=== PATIENT | male | born 1985 | race American Indian/Alaskan Native ===

== ENCOUNTER 2017-06-04 00:12 | Emergency (ER) | payer SELFPAY ==
[2017-06-04 01:59] VITALS: BP 123/72; PULSE 57; RESP 18; TEMP 97.4; O2SAT 100
--- NOTE | 2017-06-04 03:15 | C.PDOC ---
History Of Present Illness 32 year old male presents to the ER with a complaint of left knee pain after patient slipped and landed on his left knee a few hours [employer] while at work. Patient reports he had a plate placed on the same knee. Denies weakness or numbness. Time Seen by Provider: 06/04/17 00:24 Chief Complaint (Nursing): Lower Extremity Problem/Injury History Per: Patient History/Exam Limitations: no limitations Onset/Duration Of Symptoms: Hrs Current Symptoms Are (Timing): Still Present Recent travel outside of the [place]: No - Knee Description Of Injury: Fell Past Medical History Reviewed: Historical Data, Nursing Documentation, Vital Signs Vital Signs: Last Vital Signs Temp 97.4 F L 06/04/17 01:50 Pulse 57 L 06/04/17 01:50 Resp 18 06/04/17 01:50 BP 123/72 06/04/17 01:50 Pulse Ox 100 06/04/17 03:23 - Medical History PMH: No Chronic Diseases Family History: States: Unknown Family Hx - Social History Hx Alcohol Use: No Hx Substance Use: No Review Of Systems Except As Marked, All Systems Reviewed And Found Negative. Musculoskeletal: Positive for: Leg Pain Neurological: Negative for: Weakness, Numbness Physical Exam - Physical Exam Appears: Non-toxic, No Acute Distress Skin: Normal Color, Warm, Dry Head: Atraumatic, Normacephalic Eye(s): bilateral: Normal Inspection, PERRL, EOMI Oral Mucosa: Moist Extremity: Normal ROM (x4), Tenderness (to medial anterior knee), No Deformity, No Swelling, No Other (Erythema) Pulses: Left Dorsalis Pedis: Normal, Right Dorsalis Pedis: Normal Neurological/Psych: Oriented x3, Normal Speech, Normal Motor, Normal Sensation Gait: Steady ED Course And Treatment O2 Sat by Pulse Oximetry: 100 (Room air) Pulse Ox Interpretation: Normal - Other Rad Left knee x-ray X-Ray: Interpreted by Me, Viewed By Me Interpretation: Hardware in place, no new fractures or dislocations. Medical Decision Making Medical Decision Making: Left knee x-ray ordered, results were negative. Motrin administered for pain; patient given Rx and instructed to follow up with PMD or ortho for further evaluation. Disposition - Disposition Referrals: [facility] [Outside] [facility] [Outside] Haim Choi MD [Staff Provider] - Disposition: HOME/ ROUTINE Disposition Time: 01:30 Condition: STABLE Additional Instructions: Follow up with the Orthopedist within 1-2 days. Return if worsened. 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 - Scribe Statement The provider has reviewed the documentation as recorded by the Scribhardeep Ashraf All medical record entries made by the Royceibhardeep were at my direction and personally dictated by me. I have reviewed the chart and agree that the record accurately reflects my personal performance of the history, physical exam, medical decision making, and the department course for this patient. I have also personally directed, reviewed, and agree with the discharge instructions and disposition.
--- NOTE | 2017-06-04 08:10 | RAD ---
PROCEDURE: Left Knee Radiographs. HISTORY: Pain. COMPARISON: None. FINDINGS: BONES: Lateral plate and 4 horizontal screws transfix a lateral tibial plateau fracture. No hardware failure noted. Bone mineralization grossly normal JOINTS: Mild tibial spine spurring -mild osteoarthritis. JOINT EFFUSION: Small suggested OTHER FINDINGS: None. IMPRESSION: Status post fixation lateral tibial plateau fracture. No pre fixation images. Anatomical alignment and hardware appear satisfactory Suprapatellar small joint effusion
== END 2017-06-04 01:55 | disposition home or self-care (01) ==
LOC: C.ER 00:12
DX: M25.562 Pain in left knee (principal)

== ENCOUNTER 2017-12-20 11:15 | Emergency (ER) | payer MEDICAID ==
[2017-12-20 11:33] VITALS: BP 133/79; PULSE 86; RESP 16; TEMP 98; O2SAT 98
--- NOTE | 2017-12-20 11:35 | C.PDOC ---
History Of Present Illness 32 year old male presents to the ED for evaluation s/p fall this morning. Patient is now complaining of exacerbation of chronic left knee pain. States he fell down some stairs. Patient reports hx of left leg fixation with hardware 1- 2 years ago done in [place]. States he has had chronic pain, but it worsened after the fall. No other injuries or symptoms. Of note, patient was seen in 05/2017 for similar complaints. Time Seen by Provider: 12/20/17 11:32 Chief Complaint (Nursing): Lower Extremity Problem/Injury History Per: Patient History/Exam Limitations: no limitations Onset/Duration Of Symptoms: Days Current Symptoms Are (Timing): Still Present Past Medical History Reviewed: Historical Data, Nursing Documentation, Vital Signs Vital Signs: Last Vital Signs Temp 98 F 12/20/17 11:25 Pulse 86 12/20/17 11:25 Resp 16 12/20/17 11:25 BP 133/79 12/20/17 11:25 Pulse Ox 98 12/20/17 12:18 Other Surgeries: Left leg fixation surgery Family History: States: Unknown Family Hx - Social History Hx Tobacco Use: Yes Hx Alcohol Use: No Hx Substance Use: No Review Of Systems Except As Marked, All Systems Reviewed And Found Negative. Musculoskeletal: Positive for: Leg Pain (Left knee) Neurological: Negative for: Weakness, Numbness Physical Exam - Physical Exam Appears: Non-toxic, No Acute Distress Skin: Warm, Dry Head: Atraumatic, Normacephalic Eye(s): bilateral: Normal Inspection, PERRL, EOMI Nose: Normal Oral Mucosa: Moist Neck: Normal ROM, Supple Chest: Symmetrical Respiratory: No Accessory Muscle Use, Other (NARD, speaking in full sentences) Extremity: Normal ROM (with FROM of left lower extremity), No Tenderness, Capillary Refill (less than 2 sec), No Deformity, No Swelling Pulses: Left Dorsalis Pedis: Normal, Right Dorsalis Pedis: Normal Neurological/Psych: Oriented x3, Normal Speech, Normal Motor, Normal Sensation, Other (No focal deficits) ED Course And Treatment O2 Sat by Pulse Oximetry: 98 (RA) Pulse Ox Interpretation: Normal - Other Rad X-ray L femur X-Ray: Interpreted by Me, Viewed By Me Interpretation: No acute fracture, unremarkable left femur imaging X-ray L knee X-Ray: Interpreted by Me, Viewed By Me Interpretation: Internal hardware appears intact, no acute fracture X-ray L tib/fib X-Ray: Interpreted by Me, Viewed By Me Interpretation: No acute fracture Progress - Data Reviewed Data Reviewed: Diagnostic imaging, Old records - Patient Plan Patient Plan: Discharge, F/U with PCP Medical Decision Making Medical Decision Making: Initial Impression: 32 y/o M with chronic left knee pain, worsened s/p fall Time: 11:35 Initial Plan: --X-ray left knee --X-ray left tib/fib --X-ray left femur --Motrin 600 mg PO --Tylenol 650 mg PO --Tramadol 50 mg PO Informed patient of x-ray results. Patient is stable for discharge home. Counseled regarding diagnosis and the importance of follow up. Disposition Counseled Patient/Family Regarding: Studies Performed, Diagnosis, Need For Followup - Disposition Referrals: [facility] [Outside] [facility] [Outside] Disposition: HOME/ ROUTINE Disposition Time: 12:05 Condition: IMPROVED Instructions: Contusion (DC) Forms: [employer] ([place]), Work Excuse - Clinical Impression Clinical Impression: Knee contusion, Chronic knee pain - Scribe Statement The provider has reviewed the documentation as recorded by the Scribe (Josie Johnson) Provider Attestation: All medical record entries made by the Scribe were at my direction and personally dictated by me. I have reviewed the chart and agree that the record accurately reflects my personal performance of the history, physical exam, medical decision making, and the department course for this patient. I have also personally directed, reviewed, and agree with the discharge instructions and disposition.
--- NOTE | 2017-12-20 13:41 | RAD ---
PROCEDURE: Radiographs of the left tibia and fibula. HISTORY: TRAUMA COMPARISON: None available. TECHNIQUE: Frontal and lateral views obtained. FINDINGS: BONES: No acute fracture. Status post ORIF proximal tibia with plate and screw fixation device along the lateral margin of the proximal tibia. JOINT SPACES: Unremarkable. OTHER FINDINGS: None. IMPRESSION: No acute fracture.
--- NOTE | 2017-12-20 13:42 | RAD ---
PROCEDURE: Left Femur Radiographs. HISTORY: TRAUMA COMPARISON: None. TECHNIQUE: AP and Lateral Radiographs of the left femur. FINDINGS: FEMUR: Normal. No fracture. SOFT TISSUES: Normal. OTHER FINDINGS: None. IMPRESSION: Unremarkable radiographs of the left femur.
--- NOTE | 2017-12-20 13:42 | RAD ---
PROCEDURE: Left Knee Radiographs. HISTORY: Pain. COMPARISON: None. FINDINGS: BONES: No acute fracture. Status post ORIF proximal tibia with plate and screw fixation device along lateral margin. JOINTS: Normal. No osteoarthritis. JOINT EFFUSION: None. OTHER FINDINGS: None. IMPRESSION: No acute fracture.
== END 2017-12-20 12:09 | disposition home or self-care (01) ==
LOC: C.ER 11:15
DX: S80.02XA Contusion of left knee, initial encounter (principal); W10.9XXA Fall (on) (from) unspecified stairs and steps, initial encounter; G89.29 Other chronic pain; M25.562 Pain in left knee